=== PATIENT | male | born 1935 | race Caucasian/White ===

== ENCOUNTER 2017-07-31 09:00 | Inpatient (IN) ==
[2017-07-25 18:43] LABS: Appearance,Urine CLEAR; Bilirubin,Urine NEG (NEG); Color,Urine YELLOW; Glucose,Urine (UA) NEGATIVE (NEG); Leukocyte Esterase,Urine NEG /uL (NEG); Protein,Urine NEG (NEG); Specific Gravity,Urine 1.014 (1.000-1.035); Urine Blood NEG mg/dL (<0.03); Urobilinogen,Urine NEG (NEG)
[2017-07-25 20:07] LABS: Basophils # (Auto) 0.1 K/mcL (0.0-0.3); Basophils % (Auto) 0.5 % (0.0-2.0); Eosinophils # (Auto) 0.1 K/mcL (0.0-0.7); Eosinophils % (Auto) 0.9 % (0.0-7.0); Granulocytes % (Auto) 66.7 % (38.0-78.0); Lymphocytes # (Auto) 2.2 K/mcL (1.5-4.8); Lymphocytes % (Auto) 22.2 % (15.5-49.0); Mean Corpuscular HGB Conc 33.5 g/dL (31.0-36.0); Mean Corpuscular Hemoglobin 31.5 pg (26.0-34.0); Monocytes % (Auto) 9.7 % (1.0-12.0); Platelet Count 145 K/mcL (140-440); RBC 3.95 M/mcL (4.50-5.90); Red Cell Distribution Width 15.2 % (11.5-14.5)
[2017-07-25 20:27] LABS: Blood Urea Nitrogen 15 mg/dl (8-23)
[~2017-07-31 09:00] MED LIST: ACETAMINOPHEN 500 MG TABLET PO SCH; CELECOXIB 200 MG CAPSULE PO SCH; GABAPENTIN 300 MG CAPSULE PO SCH; ceFAZolin 1 GM VIAL IV SCH; oxyCODONE 10 MG TAB.ER.12H PO SCH
[2017-07-31] MEDS ORDERED: VANCOMYCIN PER PHARMACY IV ONE (13:17)
[2017-07-31] MEDS ORDERED: DEXAMETHASONE 10 MG/ML VIAL IV ONE (13:25)
[2017-07-31] MEDS ORDERED: LIDOCAINE HCL/PF 100 MG/5 ML SYRINGE IV ONE (13:25)
[2017-07-31] MEDS ORDERED: fentaNYL 100 MCG/2 ML VIAL IV ONE (13:25)
[2017-07-31] MEDS ORDERED: TRANEXAMIC ACID 1,000 MG/10 ML VIAL IV ONE ×2 (13:25→14:53)
[2017-07-31] MEDS ORDERED: ROPIVACAINE HCL/PF 30 ML VIAL IJ ONE (13:25)
[2017-07-31] MEDS ORDERED: MIDAZOLAM 2 MG/2 ML VIAL IV ONE (13:25)
[2017-07-31] MEDS ORDERED: PROPOFOL 200 MG/20 ML VIAL IV ONE (13:25)
[2017-07-31] MEDS ORDERED: VANCOMYCIN 1,500 MG in 0.9 % SODIUM CHLORIDE 500 ML IV ONE (13:30)
[2017-07-31] MEDS ORDERED: KETOROLAC 30 MG, ROPIVACAINE HCL/PF 49.5 ML, EPINEPHrine 0.5 MG, 0.9 % SODIUM CHLORIDE ... IJ ONE (13:54)
[2017-07-31] MEDS ORDERED: GENTAMICIN SULFATE 800 MG/20 ML VIAL IR ONE (14:30)
[2017-07-31] MEDS ORDERED: ONDANSETRON 4 MG/2 ML VIAL IV PRN ×2 (14:36→14:53)
[2017-07-31] MEDS ORDERED: MEPERIDINE 25 MG/ML SYRINGE IV PRN (14:36)
[2017-07-31] MEDS ORDERED: IPRATROPIUM/ALBUTEROL 3 ML AMPUL.NEB NEB PRN (14:36)
[2017-07-31] MEDS ORDERED: METHOCARBAMOL 1,000 MG/10 ML VIAL IV PRN (14:36)
[2017-07-31] MEDS ORDERED: LACTATED RINGERS 1,000 ML IV SCH (14:45)
[2017-07-31] MEDS ORDERED: MAGNESIUM HYDROXIDE 30 ML ORAL.SUSP PO PRN (14:53)
[2017-07-31] MEDS ORDERED: HYDROmorphone 2 MG/ML VIAL IV PRN (14:53)
[2017-07-31] MEDS ORDERED: BISACODYL 10 MG SUPP.RECT PR PRN (14:53)
[2017-07-31] MEDS ORDERED: ACETAMINOPHEN 325 MG TABLET PO PRN (14:53)
[2017-07-31] MEDS ORDERED: TEMAZEPAM 15 MG CAPSULE PO PRN (14:53)
[2017-07-31] MEDS ORDERED: POLYETHYLENE GLYCOL 3350 17 GM PACKET PO PRN (14:53)
[2017-07-31] MEDS ORDERED: FLEETS ADULT ENEMA PR PRN (14:53)
[2017-07-31] MEDS ORDERED: BENZOCAINE/MENTHOL 1 LOZENGE PO PRN (14:53)
[2017-07-31] MEDS ORDERED: CETIRIZINE 10 MG TABLET PO PRN (14:57)
--- NOTE | 2017-07-31 15:00 | Brief Operative Note ---
Date of procedure: 07/31/17 Pre-op diagnosis: right knee instability and synovitis Post-op diagnosis: same Procedure: right tka revision on tibial component and synovectomy Grafts/Implants: Yes Anesthesia: GETA Complications Description: 07/31/17 14:59 none Surgeon: Dewey Delgado Records Management Assistant: Taiwo Ponce Estimated blood loss (cc): 20 Tourniquet Time (Minutes): 40 Specimens Removed/Pathology: none sent Condition: stable Disposition: PACU
[2017-07-31] MEDS: fentaNYL 100 MCG/2 ML VIAL IV PRN ×4 (15:26→15:40)
--- NOTE | 2017-07-31 15:53 | Operative Note ---
DATE OF OPERATION: 07/31/2017 PREOPERATIVE DIAGNOSIS: Right knee instability and pain. POSTOPERATIVE DIAGNOSIS: Right knee instability and pain. PROCEDURE: Poly liner exchange, synovectomy, and cultures. SURGEON: Dewey Delgado M.D. COMPLICATIONS: None. DESCRIPTION OF PROCEDURE: The patient was brought to the operating room and put to sleep with general LMA anesthesia. Once asleep, the patient had the right knee sterilely prepped and draped in the usual sterile fashion. Once this was done, we then confirmed the right leg as the operative site. We made a midline incision, midvastus approach performed. There were some bony impingement areas where we removed the bony area with a reciprocating saw on the patella. The patella did impinge on the poly, and there was instability in both mid-flexion and extension. The patient then had the poly liner changed. There was a general metalosis within the knee. We performed a complete synovectomy because of the amount of metal from the baseplate. We then took the screw out that locked this baseplate and the poly was removed. This appeared to be a liner E. We then placed a 20 mm liner from a 17. This seemed to be very stable. This seemed to be the most appropriate though the patella did impinge. We then completed removing bony impingement sites and released the soft tissues after a complete synovectomy about the knee because of the metalosis and removal of the poly liner. We then placed a 20 mm poly liner. This was locked in with a locking screw. This was very stable and went through the full range of motion. We irrigated thoroughly, deflated the tourniquet at 40 minutes, very minimal bleeding. We then closed the wound with a #1 Stratafix x2 sutures. The skin was closed with 2-0 Vicryl and antonio. The patient tolerated this well without complications. RBH:milvia Job ID: [id number] Doc ID: [id number] Dewey eDlgado MD
--- NOTE | 2017-07-31 15:58 | XRay Report ---
HISTORY: Reason for Exam:Post-Op Total Knee FINDINGS: There is a well positioned total knee prosthesis. No fracture is present. There is a triangular-shaped metallic foreign body in the soft tissues, along the posterior lateral aspect of the upper calf. There has been little change from prior exam done on 10/05/16. IMPRESSION: Well-positioned right knee prosthesis Interpreted and Authenticated by: Kd Freed 07/31/17
[2017-07-31] MEDS: 0.45 % SODIUM CHLORIDE 1,000 ML IV SCH (16:29)
[2017-07-31] MEDS: HYDROcodone/APAP 10/325MG TABLET PO PRN (16:31)
[2017-07-31] MEDS: GABAPENTIN 300 MG CAPSULE PO SCH ×2 (16:32→20:58)
[2017-07-31] MEDS: WARFARIN 5 MG TABLET PO SCH (16:33)
[2017-07-31] MEDS ORDERED: KETOROLAC 15 MG/ML VIAL IV PRN (16:49)
[2017-07-31] MEDS: IPRATROPIUM/ALBUTEROL 3 ML AMPUL.NEB NEB PRN (17:27)
[2017-07-31] MEDS ORDERED: KETOROLAC 15 MG/ML VIAL IV SCH (18:00)
[2017-07-31] MEDS: SENNOSIDES 1 TABLET PO SCH (20:57)
[2017-07-31] MEDS: DOXAZOSIN 4 MG TABLET PO SCH (20:58)
[2017-07-31] MEDS: ZOLPIDEM 5 MG TABLET PO SCH (20:58)
[2017-07-31] MEDS: DOCUSATE SODIUM 100 MG CAPSULE PO SCH (20:59)
[2017-07-31] MEDS ORDERED: ASPIRIN 325 MG ENTERIC COATED TABLET PO SCH (21:00)
[2017-07-31] MEDS ORDERED: DOCUSATE SODIUM 100 MG CAPSULE PO SCH (21:00)
[2017-07-31] MEDS: ceFAZolin 1 GM VIAL IV SCH (21:08)
[2017-07-31] MEDS: 0.9 % SODIUM CHLORIDE 10 ML SYRINGE IV SCH (21:16)
[2017-07-31] MEDS: QUININE SULFATE 300 MG PO SCH (21:28)
[2017-08-01] MEDS: HYDROcodone/APAP 10/325MG TABLET PO PRN ×2 (00:14→07:18)
[2017-08-01] MEDS: 0.45 % SODIUM CHLORIDE 1,000 ML IV SCH ×2 (01:45→19:01)
[2017-08-01] MEDS: ceFAZolin 1 GM VIAL IV SCH (05:53)
[2017-08-01] MEDS: 0.9 % SODIUM CHLORIDE 10 ML SYRINGE IV SCH ×3 (06:14→21:13)
[2017-08-01] MEDS: GABAPENTIN 300 MG CAPSULE PO SCH ×3 (08:07→21:04)
[2017-08-01] MEDS: ASCORBIC ACID 500 MG TABLET PO SCH (08:07)
[2017-08-01] MEDS: DOCUSATE SODIUM 100 MG CAPSULE PO SCH ×2 (08:07→21:05)
[2017-08-01] MEDS: MAGNESIUM OXIDE 400 MG TABLET PO SCH (08:08)
[2017-08-01] MEDS: LEVOTHYROXINE 100 MCG TABLET PO SCH (08:08)
[2017-08-01] MEDS ORDERED: CYANOCOBALAMIN 1,000 MCG/ML VIAL IM SCH (09:00)
[2017-08-01] MEDS: METHOCARBAMOL 750 MG TABLET PO PRN (11:49)
[2017-08-01] MEDS: oxyCODONE/APAP 5/325MG TABLET PO PRN ×4 (11:49→23:58)
--- NOTE | 2017-08-01 12:47 | Orthopedic Progress Note ---
Subjective Patient information: Note initiated : 08/01/17 at 12:45 pm Service Date, if different from initiated Date: [] Patient: Umesh Mackey 82 y/o M admitted on 07/31/17 for Knee Polyliner Exchange-Right. Chief Complaint: [less pain and eating well and no cp no sob and no nausea and vomiting] Objective Vital signs: Vital Signs Temp Pulse Pulse Resp BP Pulse Ox 08/01/17 12:00 97.9 F 67 16 170/81 99 08/01/17 08:00 97.8 F 64 16 175/83 99 08/01/17 04:00 96.7 F L 61 16 182/88 99 08/01/17 00:00 97.0 F 64 16 123/84 97 07/31/17 20:01 97.4 F 89 16 124/78 97 07/31/17 19:01 92 H 143/74 90 07/31/17 19:00 90 07/31/17 18:01 84 160/90 89 L 07/31/17 17:31 141/81 97 07/31/17 17:28 81 2 L 07/31/17 17:01 167/84 96 07/31/17 16:45 155/82 96 07/31/17 16:32 140/83 98 07/31/17 16:15 166/84 99 07/31/17 16:00 175/62 98 07/31/17 15:41 84 16 169/86 95 07/31/17 15:26 80 16 174/77 95 07/31/17 15:21 96.3 F L 80 15 160/75 95 07/31/17 15:15 81 16 170/81 99 07/31/17 15:10 75 16 149/75 98 07/31/17 15:09 98.1 F 75 12 112/68 98 Intake and Output 07/31/17 08/01/17 08/01/17 21:59 05:59 13:59 Intake Total 2580 / 2580 1677 / 1677 320 / 320 Output Total 725 / 725 900 / 900 500 / 500 Balance 1855 / 1855 777 / 777 -180 / -180 Intake: IV 500 / 500 927 / 927 Sodium Chloride 0.45% 1,000 ml 927 / 927 @ 100 mls/hr IV .Q10H [facility] Rx#: [id number] Oral 680 / 680 750 / 750 320 / 320 IV - Manual Only 1400 / 1400 Output: Void Amount 725 / 725 900 / 900 500 / 500 Other: Meal Dinner Percent of Meal Consumed 50% Feeding Ability Independent Weight 244 lb Intake & Output: Intake & Output 07/31/17 08/01/17 08/01/17 21:59 05:59 13:59 Intake Total 2580 / 2580 1677 / 1677 320 / 320 Output Total 725 / 725 900 / 900 500 / 500 Balance 1855 / 1855 777 / 777 -180 / -180 Weight 244 lb Intake: IV 500 / 500 927 / 927 Sodium Chloride 0.45% 1,000 ml 927 / 927 @ 100 mls/hr IV .Q10H [facility] Rx#: [id number] Oral 680 / 680 750 / 750 320 / 320 IV - Manual Only 1400 / 1400 Output: Void Amount 725 / 725 900 / 900 500 / 500 Other: Meal Dinner Percent of Meal Consumed 50% Feeding Ability Independent Incision: Yes healing Incision clean and dry: Yes Dressing: Yes clean Weight bearing status: full Neurological exam IM: Yes oriented X3, Yes neurovascular intact Extremities exam IM: Yes pedal edema, Yes Foot pink and warm, Yes neurovascular intact (will dc home on 3rd day) - Labs CBC & BMP: 08/01/17 03:50 07/25/17 16:35 Labs: Orthopedic Labs 08/01/17 03:50 PT 13.5 INR 1.0 08/01/17 07/25/17 03:50 16:35 Hgb 12.4 L Hct 36.2 L 37.2 L
--- NOTE | 2017-08-01 12:49 | Discharge Summary ---
Ortho Discharge - TKA - Patient Instructions Diet: Regular Diet Activity: activity as tolerated, weight bearing as tolerated Total Knee Protocol: For Total Knee: Start ROM FLACO with stationary bike or rocking chair. Work on gaining full extension of knee. Posterior dislocation precautions provided. Hip abductor strengthening and gait training instructions provided. Apply Cryocuff as instructed. Dressing Care: No dressing - open to air - Follow Up Plan Follow Up Appointments: Taiwo Ponce PA-C [Physician Parking Lot Attendant] - 08/15/17 2:20 pm Disposition: Hospice - Home Prognosis: Good Rehab Potential: Good I certify that the patient requires SNF services: No Overall status at discharge: patient is progressing back to baseline - Orders For Discharge Prescriptions: HYDROcodone/APAP 10/325MG [[place] 10-325Mg] 1 tab PO Q6H PRN #60 tab PRN Reason: Pain Additional Discharge Orders: Physical Therapy at Discharge - TKA Location: Determined By Patient CPM Discharge Order Location: Determined By Patient Toilet Riser Discharge Order Location: Determined By Patient Walker Location: Determined By Patient
[2017-08-01] MEDS: FLUTICASONE PROPIONATE SPRAY.NAS NS SCH (14:44)
[2017-08-01] MEDS: WARFARIN 5 MG TABLET PO SCH (14:46)
[2017-08-01] MEDS: IPRATROPIUM/ALBUTEROL 3 ML AMPUL.NEB NEB PRN (16:26)
[2017-08-01] MEDS: SENNOSIDES 1 TABLET PO SCH (21:04)
[2017-08-01] MEDS: DOXAZOSIN 4 MG TABLET PO SCH (21:04)
[2017-08-01] MEDS: QUININE SULFATE 300 MG PO SCH (21:04)
[2017-08-01] MEDS: ZOLPIDEM 5 MG TABLET PO SCH (21:05)
[2017-08-02] MEDS: HYDROcodone/APAP 10/325MG TABLET PO PRN ×2 (07:57→20:55)
[2017-08-02] MEDS: 0.9 % SODIUM CHLORIDE 10 ML SYRINGE IV SCH ×3 (07:58→21:00)
--- NOTE | 2017-08-02 09:39 | Orthopedic Progress Note ---
Subjective Patient information: Note initiated : 08/02/17 at 9:38 am Service Date, if different from initiated Date: [] Patient: Umesh Mackey 82 y/o M admitted on 07/31/17 for Knee Polyliner Exchange-Right. Chief Complaint: [complains of pain but walked 300 feet and eating well] Objective Vital signs: Vital Signs Temp Pulse Pulse Resp BP Pulse Ox 08/02/17 08:00 98.9 F 86 20 150/90 97 08/02/17 04:00 97.4 F 70 16 137/79 98 08/01/17 23:59 97.9 F 67 16 134/76 99 08/01/17 20:00 97.0 F 73 16 130/54 96 08/01/17 16:32 70 16 08/01/17 16:26 98 08/01/17 16:00 98.0 F 63 16 173/83 98 08/01/17 12:00 97.9 F 67 16 170/81 99 Intake and Output 08/01/17 08/02/17 08/02/17 21:59 05:59 13:59 Intake Total 485 / 485 475 / 475 250 / 250 Output Total 1350 / 1350 1400 / 1400 500 / 500 Balance -865 / -865 -925 / -925 -250 / -250 Intake: Oral 485 / 485 475 / 475 250 / 250 Output: Void Amount 1350 / 1350 1400 / 1400 500 / 500 Other: Meal Breakfast Percent of Meal Consumed 100% Weight 249 lb Intake & Output: Intake & Output 08/01/17 08/02/17 08/02/17 21:59 05:59 13:59 Intake Total 485 / 485 475 / 475 250 / 250 Output Total 1350 / 1350 1400 / 1400 500 / 500 Balance -865 / -865 -925 / -925 -250 / -250 Weight 249 lb Intake: Oral 485 / 485 475 / 475 250 / 250 Output: Void Amount 1350 / 1350 1400 / 1400 500 / 500 Other: Meal Breakfast Percent of Meal Consumed 100% Incision: Yes healing Incision clean and dry: Yes Dressing: Yes clean Weight bearing status: full Neurological exam IM: Yes oriented X3, Yes neurovascular intact Extremities exam IM: Yes Foot pink and warm, Yes neurovascular intact (dc to care center in am) - Labs CBC & BMP: 08/01/17 03:50 06/05/18 16:35 Labs: Orthopedic Labs 08/02/17 08/01/17 04:00 03:50 PT 15.3 H 13.5 INR 1.2 H 1.0 08/01/17 07/25/17 03:50 16:35 Hgb 12.4 L Hct 36.2 L 37.2 L
--- NOTE | 2017-08-02 09:41 | Discharge Summary ---
Ortho Discharge - TKA - Patient Instructions Diet: Regular Diet Activity: activity as tolerated, weight bearing as tolerated Total Knee Protocol: For Total Knee: Start ROM FLACO with stationary bike or rocking chair. Work on gaining full extension of knee. Posterior dislocation precautions provided. Hip abductor strengthening and gait training instructions provided. Apply Cryocuff as instructed. Dressing Care: No dressing - open to air - Follow Up Plan Follow Up Appointments: Taiwo Ponce PA-C [Physician Manager Registration] - 08/15/17 2:20 pm Disposition: Xfer SNF Prognosis: Good Rehab Potential: Good I certify that the patient requires SNF services: Yes Overall status at discharge: patient is progressing back to baseline - Orders For Discharge Prescriptions: HYDROcodone/APAP 10/325MG [[place] 10-325Mg] 1 tab PO Q6H PRN #60 tab PRN Reason: Pain Additional Discharge Orders: Physical Therapy at Discharge - TKA Location: Determined By Patient CPM Discharge Order Location: Determined By Patient Toilet Riser Discharge Order Location: Determined By Patient Walker Location: Determined By Patient
[2017-08-02] MEDS: ASCORBIC ACID 500 MG TABLET PO SCH (09:42)
[2017-08-02] MEDS: DOCUSATE SODIUM 100 MG CAPSULE PO SCH ×2 (09:43→20:58)
[2017-08-02] MEDS: GABAPENTIN 300 MG CAPSULE PO SCH ×3 (09:43→20:57)
[2017-08-02] MEDS: LEVOTHYROXINE 100 MCG TABLET PO SCH (09:44)
[2017-08-02] MEDS: oxyCODONE/APAP 5/325MG TABLET PO PRN ×2 (09:44→18:00)
[2017-08-02] MEDS: MAGNESIUM OXIDE 400 MG TABLET PO SCH (09:44)
[2017-08-02] MEDS: FLUTICASONE PROPIONATE SPRAY.NAS NS SCH (09:45)
[2017-08-02] MEDS: IPRATROPIUM/ALBUTEROL 3 ML AMPUL.NEB NEB PRN (14:43)
[2017-08-02] MEDS: WARFARIN 5 MG TABLET PO SCH (15:29)
[2017-08-02] MEDS: METHOCARBAMOL 750 MG TABLET PO PRN (18:53)
[2017-08-02] MEDS: DOXAZOSIN 4 MG TABLET PO SCH (20:56)
[2017-08-02] MEDS: ZOLPIDEM 5 MG TABLET PO SCH (20:57)
[2017-08-02] MEDS: SENNOSIDES 1 TABLET PO SCH (20:58)
[2017-08-02] MEDS: QUININE SULFATE 300 MG PO SCH (20:59)
[2017-08-03] MEDS: oxyCODONE/APAP 5/325MG TABLET PO PRN (05:15)
[2017-08-03] MEDS: METHOCARBAMOL 750 MG TABLET PO PRN (05:15)
[2017-08-03] MEDS: 0.9 % SODIUM CHLORIDE 10 ML SYRINGE IV SCH (05:15)
[2017-08-03] MEDS ORDERED: MELOXICAM 7.5 MG TABLET PO SCH (09:00)
[2017-08-03] MEDS: ASCORBIC ACID 500 MG TABLET PO SCH (09:23)
[2017-08-03] MEDS: GABAPENTIN 300 MG CAPSULE PO SCH (09:24)
[2017-08-03] MEDS: LEVOTHYROXINE 100 MCG TABLET PO SCH (09:24)
[2017-08-03] MEDS: DOCUSATE SODIUM 100 MG CAPSULE PO SCH (09:24)
[2017-08-03] MEDS: MAGNESIUM OXIDE 400 MG TABLET PO SCH (09:25)
[2017-08-03] MEDS: FLUTICASONE PROPIONATE SPRAY.NAS NS SCH (09:27)
--- NOTE | 2017-08-08 10:32 | Discharge Summary ---
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 DISCHARGE CONDITION: Stable. CONSULTATIONS: None. PROCEDURE PERFORMED: The procedure was completed on the date of admission. The procedure went without complications and there was minimal blood loss. Following the procedure the patient was taken to recovery room in stable condition. When deemed stable, was taken to the hospital floor for further observation and recovery. HISTORY OF PRESENT ILLNESS: This pleasant patient has exhausted conservative care measures in the office that has included trials with anti-inflammatories, pain medications, injections and physical therapy. The patient has discussed non-operative and operative options with Dr. Delgado at length. Due to the exhausting conservative measures the patient desired to proceed forth with operative care. HOSPITAL COURSE: The patient remained stable throughout the hospital course and exhibited normal neurovascular examinations throughout the stay. The patient worked with physical therapy per standard protocols. The patient had no incidents during the hospital course. The patient also had a stable physical exam upon discharge. The patient did not meet the discharge criteria for home and was discharged to longterm facility in a stable condition. DISCHARGE PHYSICAL EXAMINATION: VITAL SIGNS: Stable as above. GENERAL: Patient is awake, alert and oriented x3. HEENT: Head was normocephalic. NECK: Supple, no adenopathy or thyromegaly. CHEST: CTA, no wheezing, rhonchi or rales. HEART: NSR, no gallops, rubs or murmurs. MUSCULOSKELETAL: Lower extremities revealed grossly intact motor exam. NEUROLOGIC: Deep tendon response and light touch, motor, neurosensory exam was stable. SKIN: The incision was intact and the dressing had been changed to the Acticoat dressing. There were no abnormal skin markings, lesions, erythema, rashes or other skin breakdown. DISCHARGE INSTRUCTIONS/MEDICATIONS: The patient received our standard written discharge instruction sheet. These instructions included information regarding weightbearing status, activity level, diet, wound care, physical therapy instructions, bathing restrictions, shower recommendations, follow-up guidelines, driving restrictions and monitoring the wound for signs of infection that could include but not necessarily to fevers above 101.5, sweats, chills, redness, increased pain or drainage. Should any of these occur the patient was educated to contact our office at once. MEDICATIONS: The patient was restarted on normal primary care medications. Patient was also prescribed [place] 10/325 mg with instructions for 1 to 2 tabs by mouth every 4 to 6 hours as needed for pain, quantity 75 with 2 refills. The patient will be placed on 325 mg aspirin, 1 a day for 30 days post surgery. [facility] will monitor the patient's PT/INR. FOLLOWUP: Patient will follow up at [facility] 2 weeks from surgery for a postop wound check and staple removal. They will be able to certain follow up sooner with any problems or concerns. BAP:milvia Job ID: [id number] Doc ID: [id number] Taiwo Ponce PA-C
== END 2017-08-03 12:20 | DRG 489 ==
LOC: MEDSUR 10:50
PROVIDERS: ADMIT Orthopaedic Surgery; ATTEND Orthopaedic Surgery

== ENCOUNTER 2018-04-03 07:30 | Inpatient (IN) ==
[2018-03-26 19:43] LABS: Appearance,Urine CLEAR; Bacteria,Urine 0 /hpf (0); Bilirubin,Urine NEG (NEG); Color,Urine YELLOW; Glucose,Urine (UA) NEGATIVE (NEG); Leukocyte Esterase,Urine NEG /uL (NEG); Mucus,Urine FEW /hpf (0); Protein,Urine 30 mg/dL (NEG); Specific Gravity,Urine 1.023 (1.000-1.035); Urine Blood NEG mg/dL (<0.03); Urine Hyaline Cast 1 /lpf (0-2); Urine RBC 0 /hpf (0-1); Urine Squamous Epithelial Cell < 1 /hpf (0-4); Urine WBC 1 /hpf (0-4); Urobilinogen,Urine NEG (NEG)
[2018-03-26 20:03] LABS: Basophils # (Auto) 0.1 K/mcL (0.0-0.3); Basophils % (Auto) 0.4 % (0.0-2.0); Blood Urea Nitrogen 17 mg/dl (8-23); Eosinophils # (Auto) 0.2 K/mcL (0.0-0.7); Eosinophils % (Auto) 1.2 % (0.0-7.0); Lymphocytes # (Auto) 2.3 K/mcL (1.5-4.8); Lymphocytes % (Auto) 11.2 % (15.5-49.0); Mean Cell Volume 91.1 fL (80.0-100.0); Mean Corpuscular HGB Conc 32.9 g/dL (31.0-36.0); Monocytes % (Auto) 5.2 % (1.0-12.0); Platelet Count 204 K/mcL (140-440); RBC 3.91 M/mcL (4.50-5.90); Red Cell Distribution Width 14.3 % (11.5-14.5)
[2018-03-26 20:50] LABS: Estimated Average Glucose(eAG) 111 mg/dL; Hemoglobin A1C 5.5 % HGB (4.0-6.0)
[~2018-04-03 07:30] MED LIST changes: -ACETAMINOPHEN 500 MG TABLET PO SCH
[2018-04-03] MEDS ORDERED: IPRATROPIUM/ALBUTEROL 3 ML AMPUL.NEB NEB ONE ×2 (13:40→13:46)
[2018-04-03] MEDS ORDERED: DEXAMETHASONE 10 MG/ML VIAL IV ONE (15:05)
[2018-04-03] MEDS ORDERED: PROPOFOL 200 MG/20 ML VIAL IV ONE (15:05)
[2018-04-03] MEDS ORDERED: PHENYLEPHRINE 10 MG/ML VIAL IV ONE (15:05)
[2018-04-03] MEDS ORDERED: GLYCOPYRROLATE 0.2 MG/ML VIAL IV ONE (15:05)
[2018-04-03] MEDS ORDERED: TRANEXAMIC ACID 1,000 MG/10 ML VIAL IV ONE (15:05)
[2018-04-03] MEDS ORDERED: LIDOCAINE HCL/PF 100 MG/5 ML SYRINGE IV ONE (15:05)
[2018-04-03] MEDS ORDERED: MIDAZOLAM 5 MG/5 ML VIAL IV ONE (15:05)
[2018-04-03] MEDS ORDERED: KETAMINE 100 MG/ML ML IV ONE (15:05)
[2018-04-03] MEDS ORDERED: ONDANSETRON 4 MG/2 ML VIAL IV ONE (15:05)
[2018-04-03] MEDS ORDERED: FLUMAZENIL 0.1 MG/ML ML IV PRN (15:47)
[2018-04-03] MEDS ORDERED: MEPERIDINE 25 MG/ML SYRINGE IV PRN (15:47)
[2018-04-03] MEDS ORDERED: BENZOCAINE/MENTHOL 1 LOZENGE PO PRN ×2 (15:47→16:33)
[2018-04-03] MEDS ORDERED: LACTATED RINGERS 250 ML IV PRN (15:47)
[2018-04-03] MEDS ORDERED: IPRATROPIUM/ALBUTEROL 3 ML AMPUL.NEB NEB PRN (15:47)
[2018-04-03] MEDS ORDERED: ONDANSETRON 4 MG/2 ML VIAL IV PRN ×2 (15:47→16:33)
[2018-04-03] MEDS ORDERED: METHOCARBAMOL 1,000 MG/10 ML VIAL IV PRN (15:47)
[2018-04-03] MEDS ORDERED: NALOXONE HCL 0.4 MG/ML VIAL IV PRN (15:47)
[2018-04-03] MEDS ORDERED: ACETAMINOPHEN 1,000 MG/100 ML BOTTLE IV ONE (15:47)
[2018-04-03] MEDS ORDERED: LACTATED RINGERS 1,000 ML IV SCH (16:00)
[2018-04-03] MEDS ORDERED: POLYETHYLENE GLYCOL 3350 17 GM PACKET PO PRN (16:33)
[2018-04-03] MEDS ORDERED: BISACODYL 10 MG SUPP.RECT PR PRN (16:33)
[2018-04-03] MEDS ORDERED: FLEETS ADULT ENEMA PR PRN (16:33)
[2018-04-03] MEDS ORDERED: MAGNESIUM HYDROXIDE 30 ML ORAL.SUSP PO PRN (16:33)
[2018-04-03] MEDS ORDERED: HYDROmorphone 2 MG/ML VIAL IV PRN (16:33)
[2018-04-03] MEDS ORDERED: TRANEXAMIC ACID 1,000 MG/10 ML VIAL IV SCH (16:33)
--- NOTE | 2018-04-03 16:33 | Brief Operative Note ---
Date of procedure: 04/03/18 Pre-op diagnosis: R severe DJD Post-op diagnosis: same Procedure: Right anterior total hip arthroplasty Grafts/Implants: Yes (Depuy Actis 10 std stem, +1.5 36 delta head, 58 cup, neutral altrx liner) Anesthesia: spinal, GLMA Findings: severe arthritis Complications: none Surgeon: Erasmo Hyatt Top Lift Compresser: Maurice Vincent Estimated blood loss (cc): 350 Specimens Removed/Pathology: none sent Condition: stable Disposition: PACU
[2018-04-03] MEDS ORDERED: HEPARIN 20,000 UNIT/ML VIAL IR ONE (16:34)
[2018-04-03] MEDS ORDERED: HEPARIN 10,000 UNIT/ML VIAL IR ONE (16:34)
[2018-04-03] MEDS ORDERED: CETIRIZINE 10 MG TABLET PO PRN (16:37)
[2018-04-03] MEDS: fentaNYL 100 MCG/2 ML VIAL IV PRN ×2 (17:17→17:32)
[2018-04-03] MEDS: 0.9 % SODIUM CHLORIDE 1,000 ML IV SCH (17:55)
--- NOTE | 2018-04-03 18:15 | XRay Report ---
CLINICAL INFORMATION: Status post right hip replacement TECHNIQUE: AP pelvis. AP and crosstable lateral right hip COMPARISON: Previous examination dated 01/30/2017 FINDINGS: Interval right total hip arthroplasty. Alignment is anatomic. There are surgical antonio overlying the right hip. There is mild postsurgical soft tissue and intra-articular gas IMPRESSION: Status post right total hip arthroplasty Interpreted and Authenticated by: Mannie Alvarado 04/03/18
--- NOTE | 2018-04-03 18:17 | XRay Report ---
CLINICAL INFORMATION: Right hip replacement TECHNIQUE: Intraoperative fluoroscopy utilized by Dr. Hyatt. 0.3 minutes fluoroscopy used FINDINGS: Intraoperative spot films obtained IMPRESSION: Intraoperative fluoroscopy is for right total hip arthroplasty Interpreted and Authenticated by: Mannie Alvarado 04/03/18
[2018-04-03] MEDS: oxyCODONE/APAP 5/325MG TABLET PO PRN ×2 (19:09→23:50)
[2018-04-03] MEDS: GABAPENTIN 300 MG CAPSULE PO SCH (19:09)
[2018-04-03] MEDS: METHOCARBAMOL 750 MG TABLET PO PRN (19:10)
[2018-04-03] MEDS: DOXAZOSIN 1 MG TABLET PO SCH (19:10)
[2018-04-03] MEDS: KETOROLAC 15 MG/ML VIAL IV PRN (19:10)
[2018-04-03] MEDS: DOCUSATE SODIUM 100 MG CAPSULE PO SCH ×2 (19:11)
[2018-04-03] MEDS: SENNOSIDES 1 TABLET PO SCH (19:11)
[2018-04-03] MEDS: ASPIRIN 325 MG ENTERIC COATED TABLET PO SCH (19:11)
[2018-04-03] MEDS: IPRATROPIUM/ALBUTEROL 3 ML AMPUL.NEB NEB PRN (20:14)
[2018-04-03] MEDS: 0.9 % SODIUM CHLORIDE 10 ML SYRINGE IV SCH (21:06)
[2018-04-03] MEDS: ceFAZolin 1 GM VIAL IV SCH (21:41)
[2018-04-04] MEDS: 0.9 % SODIUM CHLORIDE 1,000 ML IV SCH ×2 (02:04→15:17)
[2018-04-04] MEDS: oxyCODONE/APAP 5/325MG TABLET PO PRN ×4 (04:11→21:14)
[2018-04-04] MEDS: ceFAZolin 1 GM VIAL IV SCH (05:46)
[2018-04-04] MEDS: 0.9 % SODIUM CHLORIDE 10 ML SYRINGE IV SCH ×3 (05:46→21:14)
[2018-04-04] MEDS: IPRATROPIUM/ALBUTEROL 3 ML AMPUL.NEB NEB PRN ×2 (06:03→12:51)
--- NOTE | 2018-04-04 07:39 | Discharge Summary ---
Providers - Providers Patient information: Note initiated : 04/04/18 at 7:35 am Service Date, if different from initiated Date: [] Patient: Umesh Mackey 83 y/o M admitted on 04/03/18 for Right Total Hip Arthroplasty. Chief Complaint: [] Discharge date: 04/04/18 Hospitalization Hospital course: Pt was admitted for a R OLE. Pt admitted on the day of procedure. Pt spent one night on the floor for IV pain meds. IV abx, and PT. Pt will take ASA for DVT prophylaxis. Will attend out-pt PT. F/u at [facility] in 2 weeks. Discharge diagnosis: R hip OA Exam - Exam Incision healing: Yes Clean and dry: Yes Weight bearing status: as tolerated Ortho Discharge - OLE - Patient Instructions Diet: Regular Diet Activity: activity as tolerated Total Hip Protocol: Follow activity instructions as provided by Physical Therapy. Dressing Care: May shower in 2 days - Follow Up Plan Disposition: Home, Self-Care Prognosis: Good Rehab Potential: Good Overall status at discharge: patient is progressing back to baseline - Orders For Discharge Prescriptions: Aspirin [Ecotrin] 325 mg PO BID #60 tab.ec HYDROcodone/APAP 10/325MG [[place] 10-325Mg] 1 - 2 tab PO Q6H PRN #75 tab PRN Reason: Pain Pending Studies Resuscitation Status Full Code Diet Consistent Carbohydrate Diet Start MonApr 03 1635 Albuterol/Ipratropium (Duoneb) 3 ml NEB Q6HP PRN PRN Reason: Shortness Of Breath Last Admin: 04/04/18 06:03 Dose: 3 ml Documented by: [email or web address] Admin: 04/03/18 20:14 Dose: 3 ml Documented by: JODY Aspirin (Ecotrin) 325 mg PO BID [facility] Last Admin: 04/03/18 19:11 Dose: 325 mg Documented by: OBINSON Docusate Sodium (Colace) 100 mg PO [facility] Last Admin: 04/03/18 19:11 Dose: 100 mg Documented by: OBINSON Docusate Sodium (Colace) 100 mg PO BID [facility] Last Admin: 04/03/18 19:11 Dose: Not Given Documented by: MARTITA Doxazosin Mesylate (Cardura) 2 mg PO [facility] Last Admin: 04/03/18 19:10 Dose: 2 mg Documented by: MARTITA Gabapentin (Neurontin) 600 mg PO BID [facility] Last Admin: 04/03/18 19:09 Dose: 600 mg Documented by: MARTITA Sodium Chloride (Sodium Chloride 0.9%) 1,000 mls @ 100 mls/hr IV .Q10H [facility] Last Admin: 04/04/18 02:04 Dose: 100 mls/hr Documented by: Infusion: 04/04/18 02:04 Dose: 100 mls/hr Documented by: Admin: 04/03/18 17:55 Dose: 100 mls/hr Documented by: [email or web address] Ketorolac Tromethamine (Toradol) 15 mg IV Q6HP PRN PRN Reason: Pain Stop: 04/05/18 16:36 Last Admin: 04/03/18 19:10 Dose: 15 mg Documented by: MARTITA Methocarbamol (Robaxin) 750 mg PO DAILYP PRN PRN Reason: Muscle Pain Last Admin: 04/03/18 19:10 Dose: 750 mg Documented by: MARTITA Oxycodone/Acetaminophen (Percocet 5-325 Mg) 0 tab PO Q4HP PRN PRN Reason: PAIN LEVEL 3-6 Last Admin: 04/04/18 04:11 Dose: 2 tab Documented by: Admin: 04/03/18 23:50 Dose: 2 tab Documented by: Admin: 04/03/18 19:09 Dose: 2 tab Documented by: AMRTITA Senna (Senokot) 2 tab PO HS [facility] Last Admin: 04/03/18 19:11 Dose: 2 tab Documented by: MARTITA Sodium Chloride (Saline Flush) 10 ml IV Q8 [facility] Last Admin: 04/04/18 05:46 Dose: Not Given Documented by: Admin: 04/03/18 21:06 Dose: Not Given Documented by: MARTITA Shift Summary 04/04/18 04:51 Shift Summary by Winifred Ramirez Pt taking Percocet 2 tabs for pain. Last dose at 0400. Pt voiding small amounts. At 0430 pt voided 175 with PRV of 360. Pt has been ambulating in hallway x2 this shift. No n/v. MIV cont to infuse. ABO due at 0630. Dressing to hip is CDI. Will update with verbal report. Initialized on 04/04/18 04:51 - END OF NOTE
[2018-04-04] MEDS: LEVOTHYROXINE 100 MCG TABLET PO SCH (07:46)
[2018-04-04] MEDS ORDERED: CYANOCOBALAMIN 1,000 MCG/ML VIAL IM SCH (09:00)
[2018-04-04] MEDS: KETOROLAC 15 MG/ML VIAL IV PRN ×2 (09:25→15:24)
--- NOTE | 2018-04-04 09:27 | Operative Note ---
DATE OF OPERATION: 04/03/2018 PREOPERATIVE DIAGNOSIS: Right hip severe osteoarthritis. POSTOPERATIVE DIAGNOSIS: Right hip severe osteoarthritis. PROCEDURE PERFORMED: Right anterior total hip arthroplasty placing a DePuy Actis size 10 standard offset femoral stem, a +1.5, 36 mm delta ceramic head ball, 58 [place] cup with a neutral AltrX liner. SURGEON: Erasmo Hyatt MD RESIDENTIAL TREATMENT COUNSELOR: Armando Vincent PA-C. ANESTHESIA: Spinal plus general. DRAINS: None. SPECIMENS: Femoral head which was discarded. BLOOD LOSS: 250 mL COMPLICATIONS: None. POSTOPERATIVE CONDITION: Stable. INDICATIONS FOR SURGERY: This is an 83-year-old male who has had longstanding progressive worsening right hip pain. Radiographs showed severe [id number] arthritis with femoral head deformity. FINDINGS AT SURGERY: As above. Post-implantation showed satisfactory component position, leg length and offset being relatively equal. PROCEDURE IN DETAIL: The patient had been seen preoperatively. Informed consent had been obtained after discussion of risks, benefits of surgery. Risks including, but not limited to, bleeding, possibly requiring transfusion; infection, possibly requiring implant removal and prolonged IV antibiotics; injury to nerves, blood vessels or other surrounding structures; anesthetic risks; incomplete or no resolution of symptoms; leg length discrepancy; dislocation; DVT and pulmonary embolus risks, fracture; possibility of needing further revision surgery. He understood and wished to proceed. Correct operative site was marked and the patient received spinal anesthesia. He was then taken to the operating room and LMA general given. He was carefully positioned on the fracture table and then the right hip and groin were carefully prepped and draped in normal sterile fashion and a timeout was performed verifying patient name, operative site, and plan. Ioban was used to cover all skin surfaces and then a standard anterior approach incision was made with a scalpel through skin and subcutaneous tissue. Hemostasis was obtained with Bovie cautery. Blunt dissection was taken down onto the fascia and then this was undermined circumferentially. IrriSept was irrigated and a ring retractor placed. Fascia was incised in line with muscle fibers and then blunt dissection was taken down onto the femoral neck. Circumflex vessels were coagulated and cut and vastus fascia split distally. Anterior capsulectomy was performed and capsule releases taken out towards the trochanters. Traction was placed on the leg and then a corkscrew placed in the femoral head. Osteotome was used under fluoro to identify our neck cut. An oscillating tip saw was used to make our osteotomy. Femoral head was removed. The leg was externally rotated and acetabulum exposed. Labrum was excised circumferentially as well as soft tissue from the floor. We started reaming directly medializing but increased reamer size and angle and it took all the way to a 57 reamer to get any sort of rim ream. We opened a 58 3-hole [place] cup. Acetabulum was irrigated with IrriSept, after a minute pulse lavage with saline. The cup was impacted with the [id number] and approximately 35 to 40 degrees of inclination and 30 degrees of anteversion. Good press fit was obtained. The center hole cover was placed, some anterior osteophyte was removed with osteotome. Center hole cover was placed and a neutral AltrX liner was carefully aligned and impacted. Traction was released from the leg and it was externally rotated. Capsule was released around the medial neck posteriorly to the lesser trochanter. The leg was then extended and adducted. We released capsule out to the greater trochanter. Box osteotome was used to gain canal entry. Bone quality was not good. We went ahead and used a rongeur and rasp to lateralize and then began sequentially broaching by hand up to a size 10. A limited calcar planing was done. A standard offset neck trial was placed with a +1.5 head ball. Hip was reduced without excessive tension. AP pelvis was taken to verify neutral rotation and AP of the nonoperative and operative hips were overlaid. This showed nearly identical leg length offset with components in good position and leg lengths equal. We redislocated and removed the 10 trial. A 10 standard offset Actis stem was opened. Femoral canal was irrigated with IrriSept, after a minute pulse lavage was with saline. The stem was then impacted and seated down on the neck cut. We opened a +1.5 head ball. The stem was carefully cleaned and dried and the head ball briskly impacted. Hip was reduced and final fluoro images were taken. IrriSept was irrigated, after a minute pulse lavage with saline. Tensor fascia was closed with #1 Vicryl, two running stitches. Ring retractor was removed and IrriSept irrigated again and after a minute pulse lavaged with saline. Fat was tacked to fascia with Vicryl, as well as a deep fat layer closed and then 2-0 Monocryl for subcutaneous and antonio for skin. Xeroform sterile dressings were applied. The patient was awakened, extubated, and transferred to recovery in stable condition. ITALO:cecilia Job ID: [id number] Doc ID: [id number] Erasmo Hyatt MD
[2018-04-04] MEDS: METHOCARBAMOL 750 MG TABLET PO PRN ×2 (09:46→15:25)
[2018-04-04] MEDS: ASPIRIN 325 MG ENTERIC COATED TABLET PO SCH ×2 (09:48→21:14)
[2018-04-04] MEDS: DOCUSATE SODIUM 100 MG CAPSULE PO SCH ×3 (09:49→21:16)
[2018-04-04] MEDS: GABAPENTIN 300 MG CAPSULE PO SCH ×2 (09:50→21:16)
[2018-04-04] MEDS: MELOXICAM 7.5 MG TABLET PO SCH (21:15)
[2018-04-04] MEDS: DOXAZOSIN 1 MG TABLET PO SCH (21:15)
[2018-04-04] MEDS: SENNOSIDES 1 TABLET PO SCH (21:16)
[2018-04-05] MEDS: 0.9 % SODIUM CHLORIDE 1,000 ML IV SCH (00:55)
[2018-04-05] MEDS: oxyCODONE/APAP 5/325MG TABLET PO PRN ×2 (01:19→05:20)
[2018-04-05] MEDS: 0.9 % SODIUM CHLORIDE 10 ML SYRINGE IV SCH (05:20)
[2018-04-05] MEDS: IPRATROPIUM/ALBUTEROL 3 ML AMPUL.NEB NEB PRN (07:09)
[2018-04-05] MEDS: LEVOTHYROXINE 100 MCG TABLET PO SCH (07:29)
--- NOTE | 2018-04-05 08:01 | Orthopedic Progress Note ---
Orthopedics - Auxillary Note - Subjective Patient Information: Note initiated : 04/05/18 at 8:00 am Service Date, if different from initiated Date: [] Patient: Umesh Mackey 83 y/o M admitted on 04/03/18 for Right Total Hip Arthroplasty. Chief Complaint: mild pain bandages c/d/i nvi-distal Vital Signs Temp Pulse Pulse Resp BP Pulse Ox 04/05/18 07:17 72 16 04/05/18 04:40 98.7 F 82 20 104/48 93 04/04/18 23:30 97.9 F 74 16 110/50 98 04/04/18 19:55 98.5 F 80 20 112/58 97 04/04/18 15:29 98.1 F 75 12 118/58 85 L 04/04/18 12:52 85 16 04/04/18 11:24 98.5 F 83 20 102/48 96 Intake and Output 04/04/18 04/05/18 04/05/18 21:59 05:59 13:59 Intake Total 800 1225 Output Total 200 950 Balance 600 275 Intake: Oral 400 1225 GI Tube Flush 400 Output: Void Amount 200 950 Other: Meal HS snack Percent of Meal Consumed 100% Feeding Ability Independent Urine Appearance Clear Urine Color Bright Yellow Weight 256 lb 1.6 oz Laboratory Results - last 24 hr 04/05/18 04:46 Hgb 8.8 L Hct 26.3 L s/p R OLE-stable pt ready for discharge. overall doing well, but nervous about going home.
[2018-04-05] MEDS: MELOXICAM 7.5 MG TABLET PO SCH (08:40)
[2018-04-05] MEDS: ASPIRIN 325 MG ENTERIC COATED TABLET PO SCH (08:40)
[2018-04-05] MEDS: DOCUSATE SODIUM 100 MG CAPSULE PO SCH (08:40)
[2018-04-05] MEDS: GABAPENTIN 300 MG CAPSULE PO SCH (08:40)
== END 2018-04-05 11:20 | disposition home or self-care (01) | DRG 470 ==
LOC: MEDSUR 11:53
PROVIDERS: ADMIT Orthopaedic Surgery; ATTEND Orthopaedic Surgery